=== PATIENT | male | born 1970 | race African-American/Black ===

== ENCOUNTER 2018-04-23 23:30 | Emergency (ER) | payer MEDICAID, OTHER ==
[~2018-04-23] VITALS: Ht 180.3 cm; Wt 122.7 kg
[~2018-04-23 23:30] MED LIST: metformin
[2018-04-24] MEDS ORDERED: KETOROLAC 30MG/ML VIAL IV ONE
[2018-04-24] MEDS ORDERED: KETOROLAC 30MG/ML VIAL IM ONE (00:30)
[2018-04-24 01:30] VITALS: BP 133/76
== END 2018-04-24 01:33 | disposition home or self-care (01) ==
LOC: ER 23:30
DX: S39.012A Strain of muscle, fascia and tendon of lower back, initial encounter (principal); V49.9XXA Car occupant (driver) (passenger) injured in unspecified traffic accident, initial encounter; Y93.9 Activity, unspecified; Y92.410 Unspecified street and highway as the place of occurrence of the external cause
CPT/HCPCS: 72070; 96372; 99284; J1885